=== PATIENT | female | born 1980 | race Caucasian/White ===

== ENCOUNTER → 2017-09-07 | Outpatient (CLI) | payer OTHER ==
[~2017-09-07] MED LIST: METFORMIN HCL500 MG PO
== END | disposition home or self-care (01) ==
LOC: LITH 08-31 11:49
DX: N20.0 Calculus of kidney (principal); Z90.49 Acquired absence of other specified parts of digestive tract; Z98.890 Other specified postprocedural states; Z85.3 Personal history of malignant neoplasm of breast